=== PATIENT | female | born 1995 | race Two or more races ===

== ENCOUNTER 2018-02-25 11:44 | Emergency (ER) | payer OTHER ==
[~2018-02-25] VITALS: Ht 157.5 cm; Wt 57.7 kg
[2018-02-25] MEDS ORDERED: LORazepam 2 MG/ML, 1ML ONE (12:29)
[2018-02-25] MEDS ORDERED: LORazepam 2 MG/ML, 1ML IM ONE (12:30)
[2018-02-25 13:27] VITALS: BP 113/69
== END 2018-02-25 13:29 | disposition home or self-care (01) ==
LOC: ED 13:22
DX: F41.1 Generalized anxiety disorder (principal); R00.2 Palpitations; G43.909 Migraine, unspecified, not intractable, without status migrainosus
CPT/HCPCS: 93005; 96372; 99283; J2060